=== PATIENT | female | born 1950 ===

== ENCOUNTER → 2018-02-07 09:27 | Outpatient (CLI) | payer OTHER ==
[~2018-02-07 09:27] MED LIST: XANAX2 MG PO
== END | disposition home or self-care (01) ==
LOC: LAB 09:27
DX: R10.84 Generalized abdominal pain (principal); K57.32 Diverticulitis of large intestine without perforation or abscess without bleeding; Z51.81 Encounter for therapeutic drug level monitoring

== ENCOUNTER 2018-02-08 07:40 | Outpatient (CLI) | payer OTHER | END 2018-02-08 07:45 | disposition home or self-care (01) | LOC: TOM 07:40 | DX: R10.84 Generalized abdominal pain (principal); K59.09 Other constipation; K57.32 Diverticulitis of large intestine without perforation or abscess without bleeding | CPT/HCPCS: 74177; Q9965 ==

== ENCOUNTER 2018-05-04 19:56 | Inpatient (IN) | payer OTHER ==
[~2018-05-04] VITALS: Ht 154.9 cm; Wt 38.6 kg
[2018-05-04] MEDS ORDERED: LEVSIN0.125 MG (20:33)
== END 2018-05-12 14:48 | disposition left against medical advice (07) | DRG 387 ==
LOC: ER 19:56 → SEC-K 05-05 10:59 → MEDJ 05-05 13:59
PROC: BW25Y0Z Computerized Tomography (CT Scan) of Chest, Abdomen and Pelvis using Other Contrast, Unenhanced and Enhanced (ICD-10-PCS; principal; 2018-05-09)
DX: K51.314 Ulcerative (chronic) rectosigmoiditis with abscess (principal); E86.0 Dehydration

== ENCOUNTER 2019-11-19 09:32 | Outpatient (CLI) | payer OTHER ==
[~2019-11-19 09:32] MED LIST changes: +LEVSIN0.125 MG
== END 2019-11-19 09:35 | disposition home or self-care (01) ==
LOC: SONOGRAMA 09:32 → MAMO-SONO 09:45
PROVIDERS: ATTEND Internal Medicine Gastroenterology
DX: R10.13 Epigastric pain (principal)

== ENCOUNTER 2020-02-11 06:53 | Emergency (ER) | payer OTHER ==
[~2020-02-11] VITALS: Ht 154.9 cm; Wt 44.0 kg
== END 2020-02-11 10:35 | disposition home or self-care (01) ==
LOC: ER 06:53
DX: S60.042A Contusion of left ring finger without damage to nail, initial encounter (principal); W18.09XA Striking against other object with subsequent fall, initial encounter; Y93.89 Activity, other specified; Y92.098 Other place in other non-institutional residence as the place of occurrence of the external cause; Y99.8 Other external cause status

== ENCOUNTER 2020-04-01 08:22 | Outpatient (CLI) | payer OTHER | END 2020-04-01 08:26 | disposition home or self-care (01) | LOC: RAD 08:22 | PROVIDERS: ATTEND Ophthalmology | DX: I10 Essential (primary) hypertension (principal); I15.8 Other secondary hypertension ==